=== PATIENT | female | born 1995 | race Two or more races ===

== ENCOUNTER 2023-07-09 15:53 | Emergency (ER) | payer MEDICAID ==
[2023-07-09] MEDS ORDERED: Proparacaine 0.5% Ophth Soln 15 ML Bottle EYELF PRN (16:17)
[2023-07-09] MEDS ORDERED: Fluorescein 1 MG Ophth Strip EYELF ONE (16:18)
[2023-07-09 16:40] VITALS: BP 124/74; PULSE 95
== END 2023-07-09 16:45 | disposition home or self-care (01) ==
LOC: VM.ED 15:53 → MERGE 15:53 → VM.ED 16:45
DX: H00.031 Abscess of right upper eyelid (principal); H00.032 Abscess of right lower eyelid
CPT/HCPCS: 99283; J3490